=== PATIENT | female | born 1975 | race Caucasian/White ===

== ENCOUNTER 2018-04-19 07:02 | Inpatient (IN) | payer MEDICAID, OTHER ==
[~2018-04-19] VITALS: Ht 172.7 cm; Wt 90.9 kg
[2018-04-19] MEDS ORDERED: CefTRIAXone 2gm/D5W 50ml 50 ML IV ONE (07:30)
[2018-04-19] MEDS ORDERED: normal saline 1000ML IV soln IV ONE (07:30)
[2018-04-19 08:29] LABS: BASOPHILS % (AUTO) 0.3 % (0-1); EOSINOPHILS # (AUTO) 0.4 X10'3 (0-0.9); EOSINOPHILS % (AUTO) 3.9 % (0-6); HEMATOCRIT 33.6 % (35.0-45.0); LYMPHOCYTES # (AUTO) 2.4 X10'3 (1.1-4.8); LYMPHOCYTES % (AUTO) 23.7 % (21-51); MEAN CORPUSCULAR HEMOGLOBIN 27.4 PG (27.0-31.0); MEAN CORPUSCULAR HGB CONC 32.6 % (33.0-36.5); MONOCYTES # (AUTO) 0.9 X10'3 (0-0.9); NEUTROPHILS # (AUTO) 6.4 X10'3 (1.8-7.7); NEUTROPHILS % (AUTO) 63.1 % (42-75); PLATELET COUNT 380 X10'3 (140-440); RED CELL DISTRIBUTION WIDTH 14.6 % (11.5-14.5); WHITE BLOOD COUNT 10.2 X10'3 (4.5-11.0)
[2018-04-19 08:36] LABS: CLARITY,URINE CLEAR (Clear); COLOR,URINE YELLOW (Yellow); GLUCOSE, URINE NEGATIVE (Neg); KETONES,URINE NEGATIVE (Neg); LEUKOCYTE ESTERASE ,URINE NEGATIVE (Neg); NITRITES, URINE NEGATIVE (Neg); OCCULT BLOOD,URINE NEGATIVE (Neg); PROTEIN,URINE NEGATIVE (Neg); URINE HCG NEGATIVE (NEG)
[2018-04-19 08:39] LABS: UA COLLECTION TYPE CLN CATCH MIDSTREAM
[2018-04-19 08:39] LABS: ALANINE AMINOTRANSFERASE 22 U/L (12-78); ALBUMIN 2.8 G/DL (3.4-5.0); ALBUMIN/GLOBULIN RATIO 0.6 (1.1-1.5); ALKALINE PHOSPHATASE 72 IU/L (46-116); ANION GAP 5 (8-16); ASPARTATE AMINO TRANSFERASE 18 U/L (10-37); BILIRUBIN,TOTAL 0.4 MG/DL (0.1-1.0); BLOOD UREA NITROGEN 13 MG/DL (7-18); BUN/CREATININE RATIO 13.7 (6.6-38.0); CALCIUM 8.6 MG/DL (8.5-10.1); CHLORIDE 104 MMOL/L (99-107); CREATININE 0.95 MG/DL (0.40-0.90); GLUCOSE 102 MG/DL (70-104); POTASSIUM 3.4 MMOL/L (3.5-5.1); SODIUM 138 MMOL/L (135-145); TOTAL CARBON DIOXIDE 28.8 MMOL/L (24-32); TOTAL PROTEIN 7.6 G/DL (6.4-8.2); eGFR 64 ML/MIN
[2018-04-19] MEDS ORDERED: NO HOME MEDS (09:28)
[2018-04-19] MEDS ORDERED: potassium Cl 40MEQ/NS 500ml 500 ML IV PRN ×2 (09:40)
[2018-04-19] MEDS ORDERED: magnesium 4gm in 100ml NS 100 ML IV PRN (09:40)
[2018-04-19] MEDS ORDERED: magnesium Cl slow-release 64mg tablet PO PRN (09:40)
[2018-04-19] MEDS ORDERED: morphine 2 MG/ML inj. syringe IV PRN (09:40)
[2018-04-19] MEDS ORDERED: magnesium hydroxide 30ml (MOM) UD suspension PO PRN (09:40)
[2018-04-19] MEDS ORDERED: acetaminophen 325mg tablet PO PRN (09:40)
[2018-04-19] MEDS ORDERED: mag hydrox/Alum hydrox/simeth 30ml oral suspension PO PRN (09:40)
[2018-04-19] MEDS ORDERED: ondansetron/PF 4mg/2ml inj IV PRN (09:40)
[2018-04-19] MEDS ORDERED: potassium Cl 20 mEq SR tablet PO PRN ×2 (09:40)
[2018-04-19] MEDS ORDERED: iohexol 300mg/ml 100ml inj. ONE (09:43)
[2018-04-19] MEDS ORDERED: vancomycin/NS 1 GM ADD-VANTAGE 250 ML IV SCH (09:45)
[2018-04-19] MEDS ORDERED: vancomycin inj 1,250 MG in normal saline 250ml IV soln 250 ML IV SCH (10:00)
[2018-04-19] MEDS: vancomycin inj 1,250 MG in normal saline 250ml IV soln 250 ML IV SCH ×3 (10:24→21:50)
[2018-04-19] MEDS: normal saline 1000ml 1,000 ML IV SCH ×2 (10:26→16:31)
[2018-04-19 13:15] VITALS: BP 126/57
[2018-04-19 18:40] VITALS: BP 122/73
[2018-04-19] MEDS: morphine 4 MG/ML inj SYRINge IV PRN ×2 (19:38→23:35)
[2018-04-19] MEDS: heparin, porcine 5000 units/ml vial SQ SCH (20:08)
[2018-04-19 23:30] VITALS: BP 141/76
[2018-04-20] MEDS: morphine 4 MG/ML inj SYRINge IV PRN (04:47)
[2018-04-20] MEDS: normal saline 1000ml 1,000 ML IV SCH (04:47)
[2018-04-20 05:14] LABS: BASOPHILS % (AUTO) 0.4 % (0-1); EOSINOPHILS # (AUTO) 0.3 X10'3 (0-0.9); EOSINOPHILS % (AUTO) 3.6 % (0-6); HEMATOCRIT 31.9 % (35.0-45.0); HEMOGLOBIN 10.6 g/dl (12.0-16.0); LYMPHOCYTES # (AUTO) 2.5 X10'3 (1.1-4.8); LYMPHOCYTES % (AUTO) 25.7 % (21-51); MEAN CORPUSCULAR HEMOGLOBIN 27.9 PG (27.0-31.0); MEAN CORPUSCULAR HGB CONC 33.3 % (33.0-36.5); MEAN PLATELET VOLUME 8.1 FL (7.4-10.4); MONOCYTES # (AUTO) 0.7 X10'3 (0-0.9); MONOCYTES % (AUTO) 7.3 % (2-12); NEUTROPHILS # (AUTO) 6.1 X10'3 (1.8-7.7); PLATELET COUNT 358 X10'3 (140-440); RED CELL DISTRIBUTION WIDTH 14.5 % (11.5-14.5); WHITE BLOOD COUNT 9.7 X10'3 (4.5-11.0)
[2018-04-20 05:46] LABS: ALANINE AMINOTRANSFERASE 20 U/L (12-78); ALBUMIN 2.5 G/DL (3.4-5.0); ALBUMIN/GLOBULIN RATIO 0.5 (1.1-1.5); ALKALINE PHOSPHATASE 69 IU/L (46-116); ANION GAP 10 (8-16); ASPARTATE AMINO TRANSFERASE 16 U/L (10-37); BILIRUBIN,TOTAL 0.3 MG/DL (0.1-1.0); BLOOD UREA NITROGEN 7 MG/DL (7-18); BUN/CREATININE RATIO 7.9 (6.6-38.0); CALCIUM 8.5 MG/DL (8.5-10.1); CHLORIDE 105 MMOL/L (99-107); CREATININE 0.89 MG/DL (0.40-0.90); GLUCOSE 98 MG/DL (70-104); MAGNESIUM 1.9 MG/DL (1.5-2.4); POTASSIUM 3.9 MMOL/L (3.5-5.1); SODIUM 141 MMOL/L (135-145); TOTAL PROTEIN 7.1 G/DL (6.4-8.2); eGFR 69 ML/MIN
[2018-04-20 07:00] VITALS: BP 102/65
[2018-04-20] MEDS ORDERED: K and/or MAG REPLACEMENT MC SCH (08:00)
[2018-04-20] MEDS ORDERED: CefTRIAXone/D5W-Rocephin 1gm 50 ML IV SCH (08:00)
[2018-04-20] MEDS: heparin, porcine 5000 units/ml vial SQ SCH (08:14)
[2018-04-20] MEDS ORDERED: haloperidol lactate 5mg/ml inj IM STA (08:34)
[2018-04-20] MEDS ORDERED: VANCOMYCIN LEVEL IV ONE (21:30)
[2018-04-21] MEDS ORDERED: VANCOMYCIN LEVEL IV ONE (09:30)
== END 2018-04-20 10:10 | disposition left against medical advice (07) | DRG 383 ==
LOC: ER 07:03 → ED HOLD 09:40 → SUR 3N 13:30
PROVIDERS: ADMIT Internal Medicine; ATTEND Family Medicine
DX: L03.115 Cellulitis of right lower limb (principal); I48.2 Chronic atrial fibrillation; F11.90 Opioid use, unspecified, uncomplicated; F15.10 Other stimulant abuse, uncomplicated; F17.200 Nicotine dependence, unspecified, uncomplicated; Z53.21 Procedure and treatment not carried out due to patient leaving prior to being seen by health care provider; Z71.51 Drug abuse counseling and surveillance of drug abuser
CPT/HCPCS: 36415; 71045; 73701; 80053; 81003; 81025; 83605; 83735; 84145; 85025; 87040; 87070; 93005; 96365; 99285; G0378; J0696; J1644; J2270; J3370; J7030; Q9967